=== PATIENT | female | born 1960 | race Two or more races ===

== ENCOUNTER 2024-07-16 22:55 | Emergency (ER) | payer OTHER ==
[~2024-07-16] VITALS: Ht 142.2 cm; Wt 35.4 kg
[2024-07-16 23:18] VITALS: BP 129/73; O2SAT 100
[2024-07-16] MEDS ORDERED: TERBINAFINE HC250 MG PO (23:19)
[2024-07-16] MEDS ORDERED: ATORVASTATIN CA10 MG PO (23:19)
[2024-07-17] MEDS ORDERED: 0.9 % SODIUM CHLORIDE 1,000 ML IV STA (02:19)
[2024-07-17] MEDS ORDERED: DEXTROSE 50 % IN WATER 0.5 G/ML VIAL IV STA (02:20)
[2024-07-17] MEDS ORDERED: DEXTROSE 50 % IN WATER 0.5 G/ML DISP.SYRIN IV ONE (02:26)
[2024-07-17] MEDS ORDERED: ONDANSETRON HCL 2 MG/ML VIAL IV STA (03:09)
[2024-07-17] MEDS ORDERED: FAMOtidine 10 MG/ML (4ML VIAL) IV PUSH STA (03:10)
[2024-07-17] MEDS ORDERED: ONDANSETRON HCL 2 MG/ML VIAL ONE (03:40)
[2024-07-17] MEDS ORDERED: FAMOTIDINE/PF 20 MG/2 ML VIAL ONE (03:40)
[2024-07-17 03:56] LABS: HEMATOCRIT 35.1 % (36.0-45.00); HEMOGLOBIN 11.7 g/dL (12.0-15.00); MEAN CELL VOLUME 95.2 fL (80.00-100.00); MEAN CORPUSCULAR HEMOGLOBIN 31.8 pg (27.00-32.0); MEAN CORPUSCULAR HGB CONC 33.3 g/dl (32.0-36.0); PLATELET COUNT 210 K/uL (150-450); RED BLOOD COUNT 3.68 M/uL (4.00-6.00)
[2024-07-17 04:34] LABS: BILIRUBIN TOTAL 0.31 mg/dL (0.3-1.2); CALCIUM 7.8 mg/dL (8.5-10.1); CREATININE SERUM 0.51 mg/dL (0.55-1.02); GFR 120.65; GLOBULINA 3.1 G/DL (2.4-3.5); POTASSIUM 4.14 mEq/L (3.5-5.1); TOTAL PROTEIN 6.1 gm/dL (6.4-8.2)
== END 2024-07-17 07:34 | disposition home or self-care (01) ==
LOC: ER 22:55
DX: E16.2 Hypoglycemia, unspecified (principal); R53.81 Other malaise; Z20.822 Contact with and (suspected) exposure to COVID-19
CPT/HCPCS: 36415; 96365; 96366; 99282; J2405; J3490 ×2; J7030